=== PATIENT | female | born 1995 | race Caucasian/White ===

== ENCOUNTER 2017-10-16 12:21 | Emergency (ER) | payer BC | END 2017-10-16 14:49 | disposition home or self-care (01) | LOC: D.ER 12:21 | DX: J02.0 Streptococcal pharyngitis (principal) ==

== ENCOUNTER 2017-12-04 17:48 | Emergency (ER) | payer BC | END 2017-12-04 20:58 | disposition home or self-care (01) | LOC: D.ER 17:48 | DX: S90.31XA Contusion of right foot, initial encounter (principal); W20.8XXA Other cause of strike by thrown, projected or falling object, initial encounter; Y93.89 Activity, other specified; Y92.019 Unspecified place in single-family (private) house as the place of occurrence of the external cause ==